=== PATIENT | male | born 1995 ===

== ENCOUNTER 2020-09-20 15:20 | Emergency (ER) | payer BC ==
[~2020-09-20] VITALS: Ht 167.6 cm; Wt 67.0 kg
--- NOTE | 2020-09-20 15:40 | NUR ---
VISUAL ACUITY ATTEMPTED. PT STATES" I CAN'T SEE THAT FAR".
--- NOTE | 2020-09-20 15:51 | NUR ---
24 YO W/ C/O EYE PAIN PER PATIENT, "MY LEFT EYE HURTS REALLY BAD" PT REPORTS HE WEARS CONTACTS, HAS NOT BEEN ABLE TO WEAR CONTACTS SINCE THUSDAY R/T PAIN. PT STATES HE HAS NOTICED BLURRY VISION TODAY. PATIENT STATES HE HAS SOME "EYE BOOGERS" THAT DIDNT APPEAR ABNORMAL. JESSIE LEA. ATTACHED TO MONITOR. AWAITING ORDERS.
[2020-09-20] MEDS ORDERED: FLUORESCEIN OPHTHALMIC 1 MG STRIP ONE (15:58)
[2020-09-20 16:48] VITALS: BP 112/75
--- NOTE | 2020-09-20 16:50 | NUR ---
Patient/Caregiver given discharge instructions and they have confirmed that they understand the instructions. Patient ambulatory with steady gait.
== END 2020-09-20 16:49 | disposition home or self-care (01) ==
LOC: ED 15:30
DX: H16.002 Unspecified corneal ulcer, left eye (principal)
CPT/HCPCS: 99283